=== PATIENT | female | born 1940 | race Two or more races ===

== ENCOUNTER 2016-06-15 02:18 | Inpatient (IN) | payer OTHER, MEDICAID ==
[2016-06-15] MEDS ORDERED: NS 500 ML IV ONE (02:25)
[2016-06-15] MEDS ORDERED: ASPIRIN 81 MG CHEWABLE TAB PO ONE (02:25)
--- NOTE | 2016-06-15 02:26 | EDPHY ---
H & P HPI/ROS: HPI CHIEF COMPLAINT: chest Pain HISTORY OF PRESENT ILLNESS: This patient is a 75-year-old, Azeri-speaking only, grandson at bedside who interpreted, she presents emergency room by EMS for chest pain. Per the grandson she developed a sharp stabbing chest pain in the center of her chest sometimes radiating to the left side of her chest approximately an hour ago they called 911 for this. She also tells me that she has shortness of breath. She has a history of hypertension and diabetes. No known cardiac history or history of CVA. Upon arrival here in emergency room I did Greet the patient she appears uncomfortable having chest pain. She immediately was placed on hall monitor and had an EKG. The EKG is concerning for ST elevation lateral injury. Due to this a cardiac alert has been called. Time of cardiac alert 229AM Past Medical History:Hyper hypertension, diabetes Past Surgical History: No recent surgical history Social History: Denies use of drugs alcohol tobacco products Family History: noncontributory ROS REVIEW OF SYSTEMS: A comprehensive 10 point review of systems is otherwise negative aside from elements mentioned in the history of present illness. Exam Constitutional appears uncomfortable,triage nursing summary reviewed, vital signs reviewed, awake/alert. Eyes normal conjunctivae and sclera, EOMI, PERRLA. HENT normal inspection, atraumatic, moist mucus membranes, no epistaxis, neck supple/ no meningismus, no raccoon eyes. Respiratory clear to auscultation bilaterally, normal breath sounds, no respiratory distress, no wheezing. Cardiovascular rate normal, regular rhythm, no murmur, no edema, distal pulses normal. Gastrointestinal soft, non-tender, no rebound, no guarding, normal bowel sounds, no distension, no pulsatile mass. Genitourinary no CVA tenderness. Musculoskeletal no midline vertebral tenderness, full range of motion, no calf swelling, no tenderness of extremities, no meningismus, good pulses, neurovascularly intact. Skin pink, warm, & dry, no rash, skin atraumatic. Neurologic awake, alert and oriented x 3, AAOx3, moves all 4 extremities equally, motor intact, sensory intact, CN II-XII intact, normal cerebellar, normal vision, normal speech. Psychiatric normal mood/affect. Heme/Lymph/Immune no lymphadenopathy. Differential diagnosis includes but is not limited to: ACS, atypical chest pain , pneumothorax, pneumonia, pulmonary embolism, aortic dissection, congestive heart failure, tumor, musculoskeletal pain, esophageal pain, GERD, peptic ulcer disease, pancreatitis Medical Decision Making: Patient be placed on full hall monitor she will have an IV established, we will obtain blood work, patient will have an EKG, chest x-ray. Re-evaluation: EKG interpretation by me on record in [employer] system. Impression time of EKG 2:26 a.m., this is sinus tachycardia rate of 105 and there appears to be ST elevation in V4 V5 by V6 concerning for acute ST-elevation ID. There is a left anterior fascicular block present. When I compare this EKG to her old EKG similar morphology however there is acute elevation of V4 V5 V6. 0240: Spoke with Dr. Gasca this patient was made a cardiac alert in the emergency room. She began full-dose aspirin, nitroglycerin and morphine she still has discomfort and shortness of breath. He did review her EKG and agrees on cardiac catheterization activation and will take her to cardiac catheterization to see if she has acute blockage that could be intervened on.. Patient's risk factors are diabetes, hypertension, age. 0248: Re-evaluation at this time she is remains hemodynamically stable. She still has ongoing chest discomfort and shortness of breath. EKG indicates a ST elevation ID. Patient be taken to crime laboratory analyst by Dr. Gasca. Critical Care: Total Critical Care Time Spent Managing this Patient: 60 Minutes. This time was spent Exclusively with this patient. This Care was exclusive of procedures. The Organ System/life at risk was cardiac This Patient was in Critical Condition because ST-elevation ID. ED x-ray chest one view: negative for acute cardiopulmonary disease. Image interpreted by myself. Source: Patient, EMS - Medical/Surgical History Hx Asthma: No Hx Chronic Respiratory Disease: No Hx Diabetes: Yes Hx Cardiac Disease: Yes Hx Renal Disease: No Hx Cirrhosis: No Hx Alcoholism: No Hx HIV/AIDS: No Hx Splenectomy or Spleen Trauma: No Other PMH: HTN/DIABETES - Social History Smoking Status: Never smoked Constitutional: Initial Vital Signs Temperature (C) 36.7 C 06/15/16 02:20 Heart Rate 119 H 06/15/16 02:20 Respiratory Rate 20 06/15/16 02:20 Blood Pressure 173/97 H 06/15/16 02:20 O2 Sat (%) 91 L 06/15/16 02:20 O2 Delivery Mode Nasal Cannula O2 (L/minute) 2 Allergies/Adverse Reactions: No Known Allergies Allergy (Verified 06/15/16 02:51) Home Medications: Medication Instructions Recorded Aspirin [Aspirin 81mg (*)] 81 mg PO DAILY PRN 06/15/16 Levothyroxine Sodium [Tirosint] 100 mcg PO DAILY 06/15/16 Linagliptin [Tradjenta] 5 mg PO DAILY 06/15/16 Lisinopril/Hctz 20/12.5MG 1 ea PO DAILY 06/15/16 [Zestoretic/Prinzide 20/12.5MG (*)] Metformin HCl [Metformin 1000 mg] 1,000 mg PO BIDMEAL 06/15/16 Omeprazole [Prilosec 20 mg] 20 mg PO DAILY 06/15/16 Simvastatin [Zocor] 20 mg PO HS 06/15/16 Medical Decision Making - Data Points Laboratory Results: Laboratory Results 06/15/16 02:30 06/15/16 02:30 Medications Given: Discontinued Medications Aspirin (Aspirin) 324 mg PO EDNOW ONE Stop: 06/15/16 02:26 Last Admin: 06/15/16 02:52 Dose: Not Given Sodium Chloride (Ns) 500 mls @ 0 mls/hr IV ONCE ONE PRN Reason: As Directed Stop: 06/15/16 02:26 Last Admin: 06/15/16 02:30 Dose: 500 mls Morphine Sulfate (Morphine) 2 mg IVP EDNOW ONE Stop: 06/15/16 03:01 Last Admin: 06/15/16 03:10 Dose: 2 mg Nitroglycerin (Nitrostat) 0.4 mg SL Q5M PRN PRN Reason: Chest Pain Stop: 06/15/16 02:36 Last Admin: 06/15/16 02:50 Dose: 0.4 mg Ondansetron HCl (Zofran) 4 mg IVP EDNOW ONE Stop: 06/15/16 02:54 Last Admin: 06/15/16 02:30 Dose: 4 mg Departure - Departure Disposition: [facility] Inpatient Acute Clinical Impression: STEMI (ST elevation myocardial infarction) Qualifiers: Involved coronary artery: unspecified coronary artery Qualified Code(s): I21.3 - ST elevation (STEMI) myocardial infarction of unspecified site Condition: Critical
--- NOTE | 2016-06-15 02:32 | CPEKG ---
Heart Rate: 105 RR Interval: 571 P-R Interval: 164 QRSD Interval: 110 QT Interval: 348 QTC Interval: 461 P Hope: 73 QRS Hope: -61 T Wave Hope: 82 EKG Severity - ABNORMAL ECG - EKG Impression: SINUS TACHYCARDIA EKG Impression: LEFT ANTERIOR FASCICULAR BLOCK EKG Impression: ST ELEVATION, PROBABLE LATERAL INJURY EKG Impression: ANTERIOR INFARCT, AGE INDETERMINATE Electronically Signed By: Pan Cohen 15-Jun-2016 07:29:26
[2016-06-15] MEDS: NITROGLYCERIN 0.4 MG BTL SL PRN ×2 (02:35→02:50)
[2016-06-15] MEDS ORDERED: ONDANSETRON 4 MG/2 ML VIAL ONE (02:36)
[2016-06-15 02:37] LABS: % IMMATURE GRANULYOCYTES 0.3 % (0.0-1.1); ABSOLUTE IMMATURE GRANULOCYTES 0.03 10^3/uL (0.00-0.10); ADD DIFF? NO; ADD MORPH? NO; ADD SCAN? NO; ATYPICAL LYMPHOCYTE FLAG 0 (0-99); FRAGMENT RBC FLAG 0 (0-99); HEMATOCRIT 36.4 % (38.0-47.0); HEMOGLOBIN 12.6 g/dL (12.6-16.3); LEFT SHIFT FLG 0 (0-99); LIPEMIA HEMOLYSIS FLAG 90 (0-99); MEAN CELL HEMOGLOBIN 32.1 pg (27.9-34.1); MEAN CELL HEMOGLOBIN CONCENTR. 34.6 g/dL (32.4-36.7); MEAN CELL VOLUME 92.9 fL (81.5-99.8); MEAN PLATELET VOLUME 10.9 fL (8.7-11.7); PLATELET CLUMPS FLAG 0 (0-99); PLATELET COUNT 256 10^3/uL (150-400); RED BLOOD CELL COUNT 3.92 10^6/uL (4.18-5.33); RED CELL DISTRIBUTION WIDTH 11.9 % (11.5-15.2)
[2016-06-15 02:47] LABS: INR 0.96 (0.83-1.16); PROTIME(PATIENT) 12.7 SEC (12.0-15.0)
[2016-06-15 02:48] LABS: APTT 30.7 SEC (23.0-38.0)
[2016-06-15 02:49] LABS: ALANINE AMINOTRANSFERASE 30 IU/L (9-52); ALBUMIN 4.5 g/dL (3.5-5.0); ALKALINE PHOSPHATASE 131 IU/L (38-126); ANION GAP 14 mEq/L (8-16); ASPARTATE AMINOTRANSFERASE 27 IU/L (14-46); BILIRUBIN,TOTAL 0.6 mg/dL (0.1-1.4); BILIRUBIN-CONJUGATED 0.5 mg/dL (0.0-0.5); BILIRUBIN-UNCONJUGATED 0.1 mg/dL (0.0-1.1); CALCIUM 9.7 mg/dL (8.5-10.4); CARBON DIOXIDE 20 mEq/l (22-31); CHLORIDE 99 mEq/L (97-110); CREATININE 0.6 mg/dL (0.6-1.0); GLOMERULAR FILTRATION RATE > 60; GLUCOSE 192 mg/dL (70-100); MAGNESIUM 1.3 mg/dL (1.6-2.3); POTASSIUM 4.2 mEq/L (3.5-5.2); SODIUM 133 mEq/L (134-144)
[2016-06-15] MEDS ORDERED: LIDOCAINE 1% 30 ML SDV ONE (02:51)
[2016-06-15] MEDS ORDERED: MIDAZOLAM 2 MG/2 ML VIAL ONE ×2 (02:51)
[2016-06-15] MEDS ORDERED: fentaNYL 100 MCG/2 ML INJ ONE (02:51)
[2016-06-15] MEDS ORDERED: IOPAMIDOL (ISOVUE-370) 150 ML BTL IV ONE (02:52)
[2016-06-15] MEDS ORDERED: ONDANSETRON 4 MG/2 ML VIAL IVP ONE (02:53)
[2016-06-15] MEDS ORDERED: NITROGLYCERIN 1,500 MCG/15 ML VIAL MISC ONE (02:53)
[2016-06-15 03:01] LABS: CREATINE KINASE-MB FRACTION 2.75 ng/mL (0-3.19); TROPONIN I 0.239 ng/mL (0-0.034)
[2016-06-15] MEDS ORDERED: BIVALIRUDIN 250 MG/5 ML VIAL IV ONE (03:24)
[2016-06-15] MEDS ORDERED: MAGNESIUM SULF 1 GM/DEXTROSE 100 ML BAG IV ONE (03:29)
[2016-06-15] MEDS ORDERED: NITROGLYCERIN 0.4 MG BTL SL PRN (05:16)
[2016-06-15] MEDS ORDERED: ATROPINE SULFATE 1 MG/10 ML SYR IVP PRN (05:16)
[2016-06-15] MEDS ORDERED: ONDANSETRON 4 MG/2 ML VIAL IVP PRN (05:16)
[2016-06-15] MEDS ORDERED: ONDANSETRON DISINTEGRATING 4 MG TAB PO PRN (05:16)
[2016-06-15] MEDS ORDERED: OXYCODONE/APAP 5/325 TAB PO PRN (05:16)
[2016-06-15 06:35] LABS: TROPONIN I 2.1 ng/mL (0-0.034)
[2016-06-15] MEDS: ACETAMINOPHEN 325 MG TAB PO PRN ×2 (07:26→15:21)
--- NOTE | 2016-06-15 07:37 | GHP ---
[f rep st] HISTORY AND PHYSICAL DATE OF ADMISSION: 06/15/2016 CHIEF COMPLAINT: Shortness of breath. HISTORY OF PRESENT ILLNESS: The patient is a 75-year-old, Azerbaijani-speaking patient, who presented t o the emergency department with complaints of shortness of breath and intermittent, sharp, stabbing chest pain in the center of her chest. This began approximately 1 o'clock in the morning. She has been under a significant amount of stress related to her son or grandson who had a recent heart cath eterization and stents at only age 39. There have been significant disagreements amongst the 8 brot hers in the family, some of whom have adopted the Jehovah Witness jain, and there seems to be so me discord related to the immediate family, including the patient's sons and all of the siblings in regard to how she is treated. She seems to be somewhat stressed and upset about her interactions wi th some of her sons on almost a daily basis. This has recently become more problematic. PAST MEDICAL HISTORY: Significant for hypertension and diabetes. She has not had a recent surgery. SOCIAL HISTORY: She denies history of drugs, alcohol, or tobacco products. FAMILY HISTORY: There is no family history of premature cardiovascular illness. REVIEW OF SYSTEMS: A 10-point review of systems was reviewed by the emergency department physician and was negative, except for shortness of breath and the other elements mentioned in the HPI. PHYSICAL EXAMINATION: GENERAL: She appears worried and uncomfortable. VITAL SIGNS: Her blood pre ssure is 156/76, heart rate is 105 and regular, respirations 16 and unlabored, oxygen saturation is 94% on 2 L by nasal cannula. NECK: No JVD. HEART: Normal S1 and S2, with a murmur consistent wit h aortic insufficiency. She also has a positive S3. LUNGS: Bilateral rales in the bases without w heezes or rhonchi. ABDOMEN: Obese with positive bowel sounds. It is nondistended and nontender. EXTREMITIES: Warm, dry, and well-perfused without significant peripheral edema. Her distal pulses are intact in the dorsalis pedis, posterior tibial, and radial distributions. LABORATORY STUDIES: Troponin which is elevated at 0.39. Magnesium low at 1.3. Alkaline phosphatas e elevated at 131, past the upper limit of normal at 126. Nonfasting glucose is 192, and the carbon dioxide is 20, BUN and creatinine are 14 and 0.6, with a sodium of 133. Coags are normal with a PT /INR of 0.96/12.7. H and H are consistent with a relatively chronic anemia dating back to , and 02/21/2011, with very similar numbers. H and H are 12.6 and 36.4. Her white count is mildly elevated at 10.32, with an absolute neutrophil count of 6.76. Her EKG reveals sinus tachycardia with left anterior fascicular block which is known to be old, with new ST-segment elevation involving the anterior precordium of V2, V3, V4, V5, and V6, with most pro minent changes in those apical leads, and Q-waves in that area. The chest x-ray has not been interpreted by the radiologist, but reveals a borderline enlarged cardi ac silhouette with diffuse and increased pulmonary markings throughout the right and left lungs, whi ch are most consistent with pulmonary edema. IMPRESSION AND PLAN: The patient presents with shortness of breath and chest pain, with new EKG ledy nges as well as significant stress in her life recently. Differential diagnosis includes an acute c oronary syndrome and AN-syscbui-yprabplpk myocardial infarction versus Takotsubo's and apical balloo gabriela cardiomyopathy. I agree with the emergency department physician that the patient should be cristo en emergently to the cardiac catheterization laboratory for a definitive assessment of the patient's coronary anatomy. If a lesion is identified in the coronary, then the patient would benefit from a cute infarct angioplasty. If there is no evidence of obstructive disease, then admission to watch f or malignant arrhythmias along with oral and possibly intravenous beta blockers and diuretics would be reasonable to help improve the patient's symptoms. /[id number]/MODL
[2016-06-15] MEDS: FUROSEMIDE 40 MG TAB PO SCH (08:51)
--- NOTE | 2016-06-15 11:51 | CPIP ---
[f rep st] INVASIVE CARDIAC PROCEDURE DATE OF PROCEDURE: 06/15/2016 REPORT TITLE: Cardiac Catheterization Procedure Report. BODY AFTER TITLE: PROCEDURE PERFORMED: 1. Selective coronary angiography. 2. Left heart catheterization. 3. Left ventriculogram. 4. Angio-Seal arteriotomy repair. COMPLICATIONS: None. BEET WORKER: Lloyd Gasca MD. INDICATION FOR THE PROCEDURE: New EKG changes with ST-segment elevation, suggestion of possible ST- elevation infarction in a patient with significant "turmoil, strife, and stress in her family." Her son recently had required cardiac surgery and stenting. There is significant strife in her family as well, bringing out the possibility of Takotsubo apical ballooning cardiomyopathy. PROCEDURE IN DETAIL: After implied consent was obtained, because of the emergent nature of this sit uation, I did explain the risks and benefits of the procedure to the patient via her son, who was pr esent in the room. The patient was taken to the cardiac catheterization laboratory emergently by the call team. The region of the right groin was cleaned, prepped, and draped in a sterile fashion. A m icropuncture set was used to gain access to the right common femoral artery. The patient then underw ent the previously mentioned diagnostic procedure with the use of JL4 and JR4 curve coronary cathete r as well as a 6-Welsh pigtail catheter. Standard wire exchange technique was utilized for all cath eter exchanges. The left main coronary lumen is approximately 5 mm in size and bifurcates into an LAD and circumflex system. The LAD is widely patent and tapers rapidly in the distal vessel. There is no evidence of f low-limiting obstruction. Likewise, the circumflex has YAMILA-3 flow without evidence of obstruction o f the circumflex proper, obtuse marginal, or posterolateral ventricular branches. The right coronary artery is dominant giving rise to a posterior descending, as well as a posterolateral ventricular b ranch. No significant flow-limiting obstruction is identified. The patient underwent left ventriculo gram in the GARCIA projection, demonstrating preserved basal cardiac function with severe mid and dista l anterior wall, apical, and snu-ls-dzikwm inferior wall hypokinesis in a typical octopus trap-type configuration consistent with apical ballooning cardiomyopathy. The left ventricular end-diastolic p ressure was elevated at 27 mmHg. 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 The patient should be admitted to the ICU and placed on beta block ers as well as given diuretics to help lower her left ventricular end-diastolic pressure and help re solve the pulmonary edema and shortness of breath which she is experiencing. She should be watched c arefully for malignant ventricular tachy dysrhythmia which is the mode of in most of the patie nts that from this condition. She may require full-dose anticoagulation if there is not prompt r ecovery of the apical cardiac function. Copy requested to: Primary Care Provider /[id number]/MODL
[2016-06-15] MEDS: METOPROLOL TARTRATE 25 MG TAB PO SCH (15:21)
[2016-06-16] MEDS: METOPROLOL TARTRATE 25 MG TAB PO SCH ×3 (00:32→21:25)
[2016-06-16] MEDS: ACETAMINOPHEN 325 MG TAB PO PRN ×2 (09:09→18:46)
[2016-06-16] MEDS ORDERED: ASPIRIN 81 MG CHEWABLE TAB PO PRN (10:38)
[2016-06-16] MEDS ORDERED: LEVOTHYROXINE SODIUM 100 MCG PO SCH (10:45)
[2016-06-16] MEDS ORDERED: (Linagliptin [Tradjenta] 5 MG) PO SCH (10:45)
[2016-06-16] MEDS: FUROSEMIDE 40 MG TAB PO SCH (11:40)
[2016-06-16] MEDS: LEVOTHYROXINE 100 MCG TAB PO SCH (11:42)
--- NOTE | 2016-06-16 12:35 | PDCARPN ---
Cardiology Progress Note Chief Complaint: fatigue Assessment/Plan: 1. 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 Will continue Lasix at current dose and decrease her Lopressor dose from 25 mg BID to 12.5 mg BID. 2. Will transfer the patient to PCU where she will continue to be monitored on tele. She has not had evidence of malignant tachydysrhythmia thus far. I would like PT to get her up and walking to reduce VTE risk. Her blood pressure and heart rate have been appropriate. We will continue to monitor. ~15 minutes was spent discussing care with the patient and her family during this visit. Subjective: I have a bit more energy today, still fatigued. Reviewed/Discussed With: family, hospitalist Time Spent With Patient: 15 minutes coordinating care Objective: Vital Signs (8 Hrs) Pulse Resp BP Pulse Ox 06/16/16 09:09 87 108/53 L 06/16/16 08:00 78 16 108/53 L 92 06/16/16 06:00 53 L 10 L 97/50 L 98 Intake/Output (24 Hrs) 06/15/16 06/16/16 06/17/16 05:59 05:59 05:59 Intake Total 500 1600 Output Total 1050 Balance 500 550 Intake: Oral (ml) 1600 IV Infused (ml) 500 Output: Urine (ml) 1050 Toilet 1050 Other: Weight 63.5 kg Number of Voids Bedpan 1 Toilet 1 Result Diagrams: 06/15/16 02:30 06/15/16 02:30 Cardiac Labs: Cardiac Lab Results (72 Hrs) 06/15/16 06:00 Troponin I 2.100 H - Physical Exam Constitutional: WDWN, no apparent distress Cardiovascular: regular rate and rhythm, no murmurs, no rubs, no gallops Respiratory: clear to auscultate bilat, no crackles, no wheezes Gastrointestinal: normoactive bowel sounds Skin: no rashes, warm Neurologic: AAOx3 Psychiatric: cooperative, interactive, following commands, not anxious ICD10 Worksheet Patient Problems: Problems Problem Status Onset STEMI (ST elevation myocardial infarction) Acute
[2016-06-16] MEDS: (Linagliptin [Tradjenta] 5 MG) PO SCH (14:18)
[2016-06-16] MEDS ORDERED: SENNOSIDES/DOCUSATE SODIUM TAB PO PRN (16:45)
[2016-06-16] MEDS ORDERED: MAGNESIUM SULF 2 GM/WATER 50 ML IV ONE (19:00)
[2016-06-16 20:20] LABS: GLUCOSE 190 mg/dL (70-100)
[2016-06-16] MEDS ORDERED: NON-FORMULARY NEW DRUG (Simvastatin [Zocor] 20 MG) PO SCH (21:00)
[2016-06-16] MEDS: ATORVASTATIN CALCIUM 10 MG TAB PO SCH (21:25)
[2016-06-17] MEDS: ACETAMINOPHEN 325 MG TAB PO PRN ×2 (05:15→15:16)
[2016-06-17] MEDS: LEVOTHYROXINE 100 MCG TAB PO SCH (05:15)
[2016-06-17] MEDS ORDERED: LEVOTHYROXINE 100 MCG TAB PO SCH (06:00)
[2016-06-17] MEDS: FUROSEMIDE 40 MG TAB PO SCH (09:38)
[2016-06-17] MEDS: METOPROLOL TARTRATE 25 MG TAB PO SCH ×2 (09:38→20:00)
[2016-06-17] MEDS: (Linagliptin [Tradjenta] 5 MG) PO SCH (09:39)
--- NOTE | 2016-06-17 16:44 | PDCARPN ---
Cardiology Progress Note Assessment/Plan: 1. 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 Will continue Lasix at current dose and decrease her Lopressor dose from 25 mg BID to 12.5 mg BID. The patient's metformin will be resumed since it has been 48 hours since exposure to contrast agents and her blood sugar is not well controlled. There have been no malignant tachydysrhythmia since admission to the ICU or transfer to telemetry. I plan to repeat a limited echocardiogram to evaluate the ejection fraction and wall motion in the AM. If there is evidence of significant improvement/ recovery then I would plan discharge in AM. 2. Will transfer the patient to PCU where she will continue to be monitored on tele. She has not had evidence of malignant tachydysrhythmia thus far. I would like PT to get her up and walking to reduce VTE risk. Her blood pressure and heart rate have been appropriate. We will continue to monitor. ~20 minutes was spent discussing care with the patient and her family during this visit. 06/17/16 16:39 Reviewed/Discussed With: family, multidisciplinary team Time Spent With Patient: 20 minutes with at least half explaining condition and coordinating care and plans for possible discharge. Objective: Intake/Output (24 Hrs) 06/16/16 06/17/16 06/18/16 05:59 05:59 06:59 Intake Total 1600 1060 Output Total 1050 Balance 550 1060 Intake: Oral (ml) 1600 1000 IV Infused (ml) 60 Magnesium Sulf 2 gm/Water 60 50 ml @ 50 mls/hr IV ONCE ONE Rx#:[id number] Output: Urine (ml) 1050 Toilet 1050 Other: Weight 69.2 kg Number of Voids Toilet 1 3 Number of Stools Toilet 1 Result Diagrams: 06/15/16 02:30 06/16/16 17:00 Cardiac Labs: Cardiac Lab Results (72 Hrs) 06/15/16 06:00 Troponin I 2.100 H Telemetry: no evidence of significant tachy or mahesh dysrhythmia. Echocardiogram: Ordered repeat for tomorrow - Physical Exam Constitutional: WDWN, no apparent distress Eyes: PERRL, EOMI, anicteric sclera, No pale conjunctiva Ears, Nose, Mouth, Throat: moist mucous membranes Cardiovascular: regular rate and rhythm, no murmurs, No irregularly irregular, No diastolic murmur, No jugular vein distention Respiratory: clear to auscultate bilat, no crackles, no wheezes, No reduced air movement, No expiratory wheeze Gastrointestinal: normoactive bowel sounds, no tenderness, No Gallagher's sign, No guarding, No rebound Skin: no rashes, no abrasions, warm, no edema - . Pending Discharge Within 24 Hours: Yes ICD10 Worksheet Patient Problems: Problems Problem Status Onset STEMI (ST elevation myocardial infarction) Acute Transient left ventricular apical ballooning syndrome Acute - ICD10 Problem Qualifiers (1) Transient left ventricular apical ballooning syndrome
[2016-06-17] MEDS: metFORMIN HCL 500 MG TAB PO SCH (18:13)
[2016-06-17 19:57] VITALS: RESP 16
[2016-06-17] MEDS: ATORVASTATIN CALCIUM 10 MG TAB PO SCH (20:00)
[2016-06-18] MEDS: LEVOTHYROXINE 100 MCG TAB PO SCH (07:12)
[2016-06-18] MEDS: metFORMIN HCL 500 MG TAB PO SCH ×2 (08:53→18:11)
[2016-06-18] MEDS: (Linagliptin [Tradjenta] 5 MG) PO SCH (08:54)
[2016-06-18] MEDS: FUROSEMIDE 40 MG TAB PO SCH (08:54)
[2016-06-18] MEDS: METOPROLOL TARTRATE 25 MG TAB PO SCH ×2 (08:54→18:11)
[2016-06-18] MEDS ORDERED: PANTOPRAZOLE SODIUM 40 MG TAB PO SCH (09:00)
[2016-06-18] MEDS ORDERED: LISINOPRIL/HCTZ 20/12.5MG 1 EA TAB PO SCH (09:00)
--- NOTE | 2016-06-18 10:14 | ECHO ---
[id number] + + [address] : : [place] [address] : : [phone] + + Adult Echocardiographic Report + -------+ :Name: Matt DSOUZA Date: 06/18/2016 08:06 AM : : Hospital Admission Number: [id number] : :: 1940 Gender: Female Height: 6 5 in : :Age: 75 yrs Race: ,[facility] Weight: 1 52 lb : :Reason For Study: assess for improvement in apical ballooning : :cardiomyopathy BSA: 1.8 meters2: :History: No previous : + -------+ MMode/2D Measurements \T\ Calculations IVSd: 1.0 cm LVIDd: 4.1 cmFS: 36.2 % LVLd ap4: 7.7 cm LVPWd: 1.3 cm LVIDs: 2.6 cmEDV(Teich): 75.8 ml EDV(MOD-sp4): 65.0 ml ESV(Teich): 25.6 ml LVLs ap4: 6.9 cm EF(Teich): 66.3 % ESV(MOD-sp4): 36.0 ml EF(MOD-sp4): 44.6 % SV(MOD-sp4): 29.0 ml Normal Measurement Values: + + :LVIDd (3.5-5.7cm) IVSd (0.6-1.1cm) LVPWd (0.6-1.1cm) Aortic Root (2.0-3.7cm)Left Atrium (1.5-4.0cm): :LV Vol(d) (76-115ml) LV Vol(s) (29-48ml) Ejec Fraction (50-65%)PV Rony (0.6- 1.2m/s) TV Rony (0.4-1.0m/s) : :MV E Rony (0.8-1.0m/s)MV A Rony (0.3-1.0m/s)LVOT Rony (0.7-1.2m/s) Asc Ao Rony ( 0.9-1.8m/s) : + + Left Ventricle The left ventricle is normal in size. There is no thrombus. There is normal left ventricular wall thickness. Ejection Fraction = 40-45%. Akinetic [place]. Mitral Valve There is moderate mitral annular calcification. The anterior mitral valve leaflet appear thickened. Tricuspid Valve The tricuspid valve is normal in structure and function. Aortic Valve The aortic valve is not well visualized. Pulmonic Valve The pulmonic valve is not well visualized. Pericardium/Pleural There is a fat pad seen. trivial pericardial effusion. Conclusion This is a limited echo to evaluate LV function. The study was technically difficult. The left ventricle is normal in size. Ejection Fraction = 40-45%. There is moderate mitral annular calcification. The anterior mitral valve leaflet appear thickened. The aortic valve is not well visualized. trivial pericardial effusion. Compared to the LV gram performed a tthe time of the patient's admission 4 days ago there is improvement in the ejection fraction from 25% to 42%. In addition, the apex appears to be regaining function, and now appears hypokinetic as opposed to akinetic. Final Reading Physician: Pieter Andrews signed on 06/18/2016 10:12 AM Ordering Physician: Lloyd Gasca Performed By: Brynn Gutierrez
[2016-06-18 15:38] VITALS: TEMP 98.3; O2SAT 94
[2016-06-18 15:47] VITALS: BP 121/69; PULSE 80
== END 2016-06-18 18:23 | disposition home or self-care (01) | DRG 287 ==
LOC: EDUNIT# → F2N 04:10 → F2W 06-16 17:19
PROVIDERS: ADMIT Internal Medicine Cardiovascular Disease; ATTEND Internal Medicine Cardiovascular Disease
PROC: B2151ZZ Fluoroscopy of Left Heart using Low Osmolar Contrast (ICD-10-PCS; principal; 2016-06-15)
PROC: B2111ZZ Fluoroscopy of Multiple Coronary Arteries using Low Osmolar Contrast (ICD-10-PCS; principal; 2016-06-15)
PROC: 4A023N7 Measurement of Cardiac Sampling and Pressure, Left Heart, Percutaneous Approach (ICD-10-PCS; principal; 2016-06-15)
DX: I51.81 Takotsubo syndrome (principal); I42.9 Cardiomyopathy, unspecified; I10 Essential (primary) hypertension; E11.9 Type 2 diabetes mellitus without complications
CPT/HCPCS: 82947-QW; 96374; 97161-GP; 97165-GO; C1760; G8978-GP-CI; G8979-GP-CI; G8980-GP-CI; G8987-GO-CI; G8988-GO-CI; G8989-GO-CI; J0583; J1644; J2250; J2405; J3010; J3475; Q9967

== ENCOUNTER → 2016-07-12 | Outpatient (CLI) | payer OTHER, MEDICAID | LOC: BHFA 14:45 | PROVIDERS: ATTEND Internal Medicine Cardiovascular Disease | DX: I42.9 Cardiomyopathy, unspecified (principal) ==

== ENCOUNTER → 2016-12-06 | Outpatient (CLI) | payer OTHER, MEDICAID | LOC: BHFA 16:15 | PROVIDERS: ATTEND Internal Medicine Cardiovascular Disease | DX: I42.9 Cardiomyopathy, unspecified (principal) ==

== ENCOUNTER 2017-04-11 14:56 | Emergency (ER) | payer OTHER, MEDICAID ==
[2017-04-11 15:02] VITALS: RESP 18; O2SAT 96
--- NOTE | 2017-04-11 15:15 | EDPHY ---
H & P Time Seen by Provider: 04/11/17 15:05 HPI/ROS: CHIEF COMPLAINT: Abdominal pain HISTORY OF PRESENT ILLNESS: The patient is 76-year-old female with a history of hypertension and diabetes who presents emergency department with ongoing abdominal pain. Patient states her pain started 1 month ago. Is waxing and waning. Today it is mild. She describes diffuse lower abdominal discomfort the radiates to her back bilaterally. She has no dysuria frequency. She has had nausea but no vomiting. She reports occasional diarrhea. Patient noticed bright red blood in her stool earlier this week. Her last bowel movement was normal. She is not lightheaded or dizzy. No chest pain or shortness of breath. REVIEW OF SYSTEMS: My complete review of systems is negative except as mentioned in the HPI. Past Medical/Surgical History: Includes hypertension, diabetes, hypothyroidism Social History: The patient does not smoke or use alcohol. Smoking Status: Never smoked Physical Exam: 36.9, 179/79, 100, 18, 96% on room air GENERAL: Well-appearing, in no acute distress, alert. HEENT: Eyes normal to inspection, normal pharynx, no signs of dehydration. NECK: No thyromegaly, no lymphadenopathy, supple. RESPIRATORY: Clear to auscultation bilaterally, no rales, rhonchi or wheezing. CVS: Regular rate and rhythm, no rubs, murmurs, or gallops. ABDOMEN: Soft, mild diffuse lower abdominal tenderness palpation, nondistended , no organomegaly. BACK: Normal to inspection, no CVA tenderness. SKIN: Normal color, no rash, warm, dry. No pallor. EXTREMITIES: No pedal edema, no calf tenderness, no Homans sign or cords, no joint swelling. NEURO/PSYCH: Alert and oriented x3, normal mood and affect, normal motor sensory exam. No obvious cranial nerve deficit. Constitutional: Initial Vital Signs Temperature (C) 36.9 C 04/11/17 14:58 Heart Rate 100 04/11/17 14:58 Respiratory Rate 18 04/11/17 14:58 Blood Pressure 179/79 H 04/11/17 14:58 O2 Sat (%) 96 04/11/17 14:58 O2 Delivery Mode Room Air Allergies/Adverse Reactions: No Known Allergies Allergy (Verified 06/15/16 02:51) Home Medications: Medication Instructions Recorded Aspirin [Aspirin 81mg (*)] 81 mg PO DAILY PRN 06/15/16 Levothyroxine Sodium [Tirosint] 100 mcg PO DAILY 06/15/16 Metformin HCl [Metformin 1000 mg] 1,000 mg PO BIDMEAL 06/15/16 Omeprazole [Prilosec 20 mg] 20 mg PO DAILY 06/15/16 Simvastatin [Zocor] 20 mg PO HS 06/15/16 Linagliptin [Tradjenta] 5 mg PO DAILY 06/18/16 Metoprolol Tartrate [Lopressor 25 12.5 mg PO BID #0 tab 06/18/16 mg (*)] metFORMIN HCL [Glucophage 500 mg 1,000 mg PO BIDMEAL #0 tab 06/18/16 (*)] Cephalexin [Keflex (*)] 500 mg PO QID 7 Days cap 04/11/17 Medical Decision Making ED Course/Re-evaluation: A mule driver was used. In the emergency department I discussed possible etiologies patient answered all her questions. IV was placed. Laboratory studies were obtained. The patient's CBC remarkable for mild anemia. The patient's chemistry panel is unremarkable. Coags normal. Patient's UA was positive for signs of urinary tract infection. I discussed results with the patient. On recheck she is doing well. She denies abdominal pain. He she had nausea at this time. I answered all her questions. She is given Keflex 5 mg orally. She will be given a prescription for Keflex. Patient will follow up with primary care physician in 1-2 days. She will then have follow-up arranged with Gastroenterology for her reported rectal bleeding. She is given warnings prior to leaving. She will return with worsening symptoms. Differential Diagnosis: My differential includes but is not limited to small-bowel obstruction, perforation, diverticulosis, diverticulitis, diverticular abscess, intussusception, volvulus, ovarian cyst, ovarian torsion, malignancy, mass - Data Points Laboratory Results: Laboratory Results 04/11/17 15:28 04/11/17 15:28 04/11/17 04/11/17 04/11/17 15:28 15:28 15:28 WBC RBC Hgb Hct MCV MCH MCHC RDW Plt Count MPV Neut % (Auto) Lymph % (Auto) [place] % (Auto) Eos % (Auto) Baso % (Auto) Nucleat RBC Rel Count Absolute Neuts (auto) Absolute Lymphs (auto) Absolute Monos (auto) Absolute Eos (auto) Absolute Basos (auto) Absolute Nucleated RBC Immature Gran % Immature Gran # PT 12.8 SEC SEC (12.0-15.0) INR 0.94 (0.83-1.16) APTT 28.4 SEC SEC (23.0-38.0) Sodium 141 mEq/L mEq/L (134-144) Potassium 4.6 mEq/L mEq/L (3.5-5.2) Chloride 103 mEq/L mEq/L (97-110) Carbon Dioxide 25 mEq/l mEq/l (22-31) Anion Gap 13 mEq/L mEq/L (8-16) BUN 18 mg/dL mg/dL (7-23) Creatinine 0.7 mg/dL mg/dL (0.6-1.0) Estimated GFR > 60 Glucose 239 mg/dL H mg/dL (70-100) Calcium 9.4 mg/dL mg/dL (8.5-10.4) Total Bilirubin 0.4 mg/dL mg/dL (0.1-1.4) Conjugated Bilirubin 0.3 mg/dL mg/dL (0.0-0.5) Unconjugated Bilirubin 0.1 mg/dL mg/dL (0.0-1.1) AST 21 IU/L IU/L (14-46) ALT 33 IU/L IU/L (9-52) Alkaline Phosphatase 101 IU/L IU/L (38-126) Total Protein 7.8 g/dL g/dL (6.3-8.2) Albumin 4.2 g/dL g/dL (3.5-5.0) Lipase 173 IU/L IU/L (23-300) Urine Color YELLOW Urine Appearance HAZY Urine pH 5.0 (5.0-7.5) Ur Specific [place] 1.023 (1.002-1.030) Urine Protein 1+ H (NEGATIVE) Urine Ketones NEGATIVE (NEGATIVE) Urine Blood NEGATIVE (NEGATIVE) Urine Nitrate NEGATIVE (NEGATIVE) Urine Bilirubin NEGATIVE (NEGATIVE) Urine Urobilinogen NEGATIVE EU EU (0.2-1.0) Ur Leukocyte Esterase 2+ H (NEGATIVE) Urine RBC 3-5 /hpf H /hpf (0-3) Urine WBC 25-50 /hpf H /hpf (0-3) Ur Epithelial Cells 2+ /lpf H /lpf (NONE-1+) Urine Bacteria 1+ /hpf H /hpf (NONE SEEN) Hyaline Casts 1-5 /lpf /lpf (0-1) Urine Mucus 1+ /lpf /lpf (NONE-1+) Urine Glucose 1+ H (NEGATIVE) 04/11/17 15:28 WBC 7.15 10^3/uL 10^3/uL (3.80-9.50) RBC 3.89 10^6/uL L 10^6/uL (4.18-5.33) Hgb 12.5 g/dL L g/dL (12.6-16.3) Hct 36.4 % L % (38.0-47.0) MCV 93.6 fL fL (81.5-99.8) MCH 32.1 pg pg (27.9-34.1) MCHC 34.3 g/dL g/dL (32.4-36.7) RDW 12.4 % % (11.5-15.2) Plt Count 234 10^3/uL 10^3/uL (150-400) MPV 11.0 fL fL (8.7-11.7) Neut % (Auto) 64.4 % % (39.3-74.2) Lymph % (Auto) 24.9 % % (15.0-45.0) [place] % (Auto) 8.5 % % (4.5-13.0) Eos % (Auto) 1.3 % % (0.6-7.6) Baso % (Auto) 0.6 % % (0.3-1.7) Nucleat RBC Rel Count 0.0 % % (0.0-0.2) Absolute Neuts (auto) 4.61 10^3/uL 10^3/uL (1.70-6.50) Absolute Lymphs (auto) 1.78 10^3/uL 10^3/uL (1.00-3.00) Absolute Monos (auto) 0.61 10^3/uL 10^3/uL (0.30-0.80) Absolute Eos (auto) 0.09 10^3/uL 10^3/uL (0.03-0.40) Absolute Basos (auto) 0.04 10^3/uL 10^3/uL (0.02-0.10) Absolute Nucleated RBC 0.00 10^3/uL 10^3/uL (0-0.01) Immature Gran % 0.3 % % (0.0-1.1) Immature Gran # 0.02 10^3/uL 10^3/uL (0.00-0.10) PT INR APTT Sodium Potassium Chloride Carbon Dioxide Anion Gap BUN Creatinine Estimated GFR Glucose Calcium Total Bilirubin Conjugated Bilirubin Unconjugated Bilirubin AST ALT Alkaline Phosphatase Total Protein Albumin Lipase Urine Color Urine Appearance Urine pH Ur Specific [place] Urine Protein Urine Ketones Urine Blood Urine Nitrate Urine Bilirubin Urine Urobilinogen Ur Leukocyte Esterase Urine RBC Urine WBC Ur Epithelial Cells Urine Bacteria Hyaline Casts Urine Mucus Urine Glucose Medications Given: Discontinued Medications Sodium Chloride (Ns) 500 mls @ 0 mls/hr IV EDNOW ONE; Wide Open PRN Reason: Protocol Stop: 04/11/17 15:17 Last Admin: 04/11/17 15:26 Dose: 500 mls Departure - Departure Disposition: Home, Routine, Self-Care Clinical Impression: Abdominal pain Qualifiers: Abdominal location: lower abdomen, unspecified Qualified Code(s): R10.30 - Lower abdominal pain, unspecified Urinary tract infection Qualifiers: Urinary tract infection type: acute cystitis Condition: Good Instructions: Abdominal Pain (ED), Urinary Tract Infection in Women (DC) Additional Instructions: You been given a by ox to treat you for urinary tract infection. You need close follow-up with her primary care physician. You also need follow-up with the consulting practice manager. This is the intestinal specialist. Referrals: Luda Oates NP [Primary Care Provider] - 2-3 days, if not improved Julio Monroy MD [Medical Doctor] - 5-7 days, call for appt. Prescriptions: Cephalexin [Keflex (*)] 500 mg PO QID 7 Days cap
[2017-04-11] MEDS ORDERED: NS 500 ML IV ONE (15:16)
[2017-04-11 15:39] LABS: PLATELET COUNT 234 10^3/uL (150-400)
[2017-04-11 15:53] LABS: INR 0.94 (0.83-1.16); PROTIME(PATIENT) 12.8 SEC (12.0-15.0)
[2017-04-11] MEDS ORDERED: CEPHALEXIN 500MG PREPACK#4 BTL TAKEHOME ONE (15:58)
[2017-04-11 16:05] VITALS: BP 134/70; PULSE 64; TEMP 97.9
== END 2017-04-11 16:20 | disposition home or self-care (01) ==
DX: N39.0 Urinary tract infection, site not specified (principal); B96.89 Other specified bacterial agents as the cause of diseases classified elsewhere; E86.9 Volume depletion, unspecified; I10 Essential (primary) hypertension; E11.9 Type 2 diabetes mellitus without complications; Z79.82 Long term (current) use of aspirin; Z79.84 Long term (current) use of oral hypoglycemic drugs

== ENCOUNTER 2017-05-04 17:10 | Emergency (ER) | payer OTHER, MEDICAID ==
--- NOTE | 2017-05-04 18:00 | EDPHY ---
H & P Time Seen by Provider: 05/04/17 17:59 HPI/ROS: CHIEF COMPLAINT: Abdominal and back pain HISTORY OF PRESENT ILLNESS: Worsening symptoms for the last month started on both lateral sides of the abdomen just below the rib cage, worse today and now severe. She feels bloated and when she eats she symptoms as nausea because of the pain. Today she also says she is having trouble breathing because the pain but does not have cough or actual chest pain or shortness of breath. Symptoms today are severe. They radiate all the way around her abdomen into her back. REVIEW OF SYSTEMS: Eye: no change in vision ENT: no sore throat Cardiac: no chest pain or syncope Pulmonary: no cough or SOB Abdomen: HPI no diarrhea or vomiting Musculoskeletal: HPI no injury or trauma Skin: no rash Neuro: no headache or weakness or numbness in extremities Constitutional: no fever : no urinary symptoms or incontinence A comprehensive 10 point review of systems is otherwise negative aside from elements mentioned in the history of present illness. PAST MEDICAL HISTORY: Includes hypertension and diabetes, thyroid Social history: Primarily Welsh speaking General Appearance: Alert and conversant, cooperative. Eyes: No scleral icterus. ENT, Mouth: Normal mucous membranes. Respiratory: Normal respiratory effort, breath sounds equal, lungs are clear to auscultation. Cardiovascular: Regular rate and rhythm. Gastrointestinal: Patient has mild right upper and left upper quadrant abdominal tenderness but no peritoneal signs. Neurological: Alert, face symmetric, normal motor and sensory in extremities. Patellar reflexes 2+ symmetric and no clonus. Ambulatory. Skin: Warm and dry, no rashes. Musculoskeletal: No midline spinal tenderness. Psychiatric: Not agitated. Emergency Department course/MDM: Differential broad including but not limited to ACS, pulmonary embolism, pancreatitis or other acute abdominal process, thoracic or upper lumbar spinal nerve compression. She does not have neurologic deficit on exam in her lower extremities. Plan for i-STAT, CT abdomen and pelvis, D-dimer and EKG. Labs to include lipase and LFTs and urinalysis. 1944: Negative chest and abdomen for pulmonary embolism, dissection, obstruction , mass, or reason for pain. 1952: Results discussed the patient, will do thoracic MRI to evaluate for cord compression as she is feeling better now but has been having pain with specialist referral to Gastroenterology and CT workup here and no definite diagnosis yet. Discussed and consented. 2055: MRI per [facility] shows osteophyte 11/15 but no cord compression, no other reason for pain noted. Discussed with patient and family with [facility] care information associate, lidocaine patch, pain medications, outpatient followup. More likely muscular or soft tissue, no rash to suggest shingles so would be unlikely with time course. Patient states pain adequately controlled to go home. Smoking Status: Never smoked Constitutional: Initial Vital Signs Temperature (C) 36.5 C 05/04/17 17:22 Heart Rate 78 05/04/17 17:22 Respiratory Rate 15 05/04/17 17:22 Blood Pressure 186/75 H 05/04/17 17:22 O2 Sat (%) 97 05/04/17 17:22 O2 Delivery Mode Room Air Allergies/Adverse Reactions: No Known Allergies Allergy (Verified 06/15/16 02:51) Home Medications: Medication Instructions Recorded Aspirin [Aspirin 81mg (*)] 81 mg PO DAILY PRN 06/15/16 Levothyroxine Sodium [Tirosint] 100 mcg PO DAILY 06/15/16 Metformin HCl [Metformin 1000 mg] 1,000 mg PO BIDMEAL 06/15/16 Omeprazole [Prilosec 20 mg] 20 mg PO DAILY 06/15/16 Simvastatin [Zocor] 20 mg PO HS 06/15/16 Linagliptin [Tradjenta] 5 mg PO DAILY 06/18/16 Metoprolol Tartrate [Lopressor 25 12.5 mg PO BID #0 tab 06/18/16 mg (*)] metFORMIN HCL [Glucophage 500 mg 1,000 mg PO BIDMEAL #0 tab 06/18/16 (*)] Cephalexin [Keflex (*)] 500 mg PO QID 7 Days cap 04/11/17 Lidocaine 5% [Lidoderm 5% Patch 1 ea TD DAILY #10 patch 05/04/17 (*)] oxyCODONE/APAP 5/325 [Percocet] 1 tab PO Q6H PRN #11 tab 05/04/17 Medical Decision Making - Diagnostics EKG Interpretation: 12-lead EKG interpreted by me; official reading is in trace master. My interpretation is sinus rhythm with left anterior fascicular block and LVH. Imaging: I viewed and interpreted images myself Differential Diagnosis: Differential broad considered including but not limited to PE, pancreatitis, bowel obstruction, thoracic spinal cord compression, shingles, muscular, dissection or other vascular, pyelonephritis. - Data Points Laboratory Results: Laboratory Results 05/04/17 18:05 05/04/17 18:05 Medications Given: Discontinued Medications Hydromorphone HCl (Dilaudid) 0.5 mg IVP EDNOW ONE Stop: 05/04/17 18:10 Last Admin: 05/04/17 18:30 Dose: 0.5 mg Sodium Chloride (Ns) 1,000 mls @ 0 mls/hr IV EDNOW ONE; Wide Open PRN Reason: Protocol Stop: 05/04/17 18:10 Last Admin: 05/04/17 18:30 Dose: 1,000 mls Lidocaine (Lidoderm 5%) 1 ea TD EDNOW ONE Stop: 05/04/17 21:09 Last Admin: 05/04/17 21:16 Dose: 1 ea Lidocaine (Lidoderm 5%) 1 ea TD EDNOW ONE Stop: 05/04/17 21:09 Last Admin: 05/04/17 21:16 Dose: 1 ea Ondansetron HCl (Zofran) 4 mg IVP EDNOW ONE Stop: 05/04/17 18:10 Last Admin: 05/04/17 18:30 Dose: 4 mg Departure - Departure Disposition: Home, Routine, Self-Care Clinical Impression: Pain, flank, bilateral Condition: Good Instructions: Flank Pain (ED) Additional Instructions: Do not take your metformin tomorrow, you can restart on Sunday the . CT and MRI studies negative for reason for your pain, more likely muscular. Please see your PCP in the office next week. - No tome agustin Metformin maana, puede tomarlo a partir del [place] 28. - Los estudios de la tomografia y MRI son negativos sin alma de agustin dolor, mas comun que sea muscular. - Por favor taurus seguimiento con agustin doctor la proxima semana. Referrals: Luda Oates, [employer] SALES LEADER [Primary Care Provider] - As per Instructions Prescriptions: Lidocaine 5% [Lidoderm 5% Patch (*)] 1 ea TD DAILY #10 patch oxyCODONE/APAP 5/325 [Percocet] 1 tab PO Q6H PRN #11 tab PRN Reason: Pain
[2017-05-04] MEDS ORDERED: ONDANSETRON 4 MG/2 ML VIAL IVP ONE (18:09)
[2017-05-04] MEDS ORDERED: HYDROmorphONE/DILAUDID 1 MG/ML INJ IVP ONE (18:09)
[2017-05-04] MEDS ORDERED: NS 1,000 ML IV ONE (18:09)
[2017-05-04 18:17] LABS: PLATELET COUNT 272 10^3/uL (150-400)
--- NOTE | 2017-05-04 18:29 | CPEKG ---
Heart Rate: 78 RR Interval: 769 P-R Interval: 168 QRSD Interval: 112 QT Interval: 412 QTC Interval: 470 P [place]: 52 QRS [place]: -54 T Wave [place]: 47 EKG Severity - ABNORMAL ECG - EKG Impression: SINUS RHYTHM EKG Impression: LEFT ANTERIOR FASCICULAR BLOCK EKG Impression: PROBABLE LEFT VENTRICULAR HYPERTROPHY Electronically Signed By: Ronald Clark 04-May-2017 18:57:49
[2017-05-04] MEDS ORDERED: IOPAMIDOL (ISOVUE 370) 100 ML BTL IV ONE (19:08)
[2017-05-04] MEDS ORDERED: LIDOCAINE 5% 1 EA PATCH TD ONE ×2 (21:08)
[2017-05-04 21:23] VITALS: BP 128/68; PULSE 78; RESP 18; TEMP 98.1; O2SAT 91
[2017-05-05] MEDS ORDERED: PATCH REMOVAL 1 EA PATCH TD SCH (21:00)
== END 2017-05-04 21:35 | disposition home or self-care (01) ==
DX: R10.11 Right upper quadrant pain (principal); R10.12 Left upper quadrant pain; I10 Essential (primary) hypertension; E11.9 Type 2 diabetes mellitus without complications; E86.9 Volume depletion, unspecified; Z79.82 Long term (current) use of aspirin; Z79.84 Long term (current) use of oral hypoglycemic drugs
CPT/HCPCS: 71275; 72146; 74177; 93005; 96361; 96374; 96375; 99285; J1170; J2405; Q9967; 82947-QW